=== PATIENT | female | born 1965 | race Two or more races ===

== ENCOUNTER 2020-08-06 10:07 | Emergency (ER) | payer SELFPAY ==
[~2020-08-06] VITALS: Ht 162.6 cm; Wt 89.5 kg
--- NOTE | 2020-08-06 10:37 | ED.ADGEN ---
Past Medical History Past Medical History: High Cholesterol Additional Past Medical Histor: frequent kidney infections Past Surgical History: , Tonsillectomy Smoking Status: Never Smoker Alcohol Use: None Drug Use: None General Adult EDM: Chief Complaint: FLANK PAIN HPI: HPI: Patient is a 54 year old female who presents emergency department with complaints of right upper quadrant and right flank pain since yesterday. She reports nausea, vomiting, dysuria, increased urinary frequency, and foul- smelling urine with her symptoms. She states that 10:00 this morning the pain increased so that is why she came to the ER. Patient denies any chest pain, fever, cough, shortness of breath, diarrhea, constipation, hematuria, body aches, fatigue, or headache. Patient reports history of frequent kidney infections. She denies any history of kidney failure. Patient denies any known exposure to COVID-19, she states she has received both doses of the [employer] Covid vaccine. She currently rates her pain a 10 out of 10 on the pain scale, she states that the pain radiates between her shoulders and also to her low back. She denies any alleviating factors or exacerbating factors. Review of Systems: Review of Systems: Complete ROS is negative unless otherwise noted in HPI. Current Medications: Current Medications Medications (Trade) Dose Ordered Sig/Coby Start Time Stop Time Status Last Admin Dose Admin Ceftriaxone Sodium (Rocephin) 1 gm 1X ONCE 08/06/20 16:15 08/06/20 16:16 Cancel Fentanyl Citrate (Fentanyl 2ml Vial) 50 mcg 1X ONCE 08/06/20 10:45 08/06/20 10:46 DC 08/06/20 10:54 50 MCG Hydromorphone HCl (Dilaudid) 1 mg 1X ONCE 08/06/20 12:45 08/06/20 12:46 DC 08/06/20 13:34 1 MG Ketorolac Tromethamine (Toradol 15mg Vial) 15 mg 1X ONCE 08/06/20 12:45 08/06/20 12:46 DC 08/06/20 13:29 15 MG Ondansetron HCl (Zofran Odt) 4 mg 1X ONCE 08/06/20 10:45 08/06/20 10:46 DC 08/06/20 10:50 4 MG Sodium Chloride 1,000 ml @ 1,000 mls/hr 1X ONCE 08/06/20 10:45 08/06/20 11:44 DC 08/06/20 10:53 1,000 MLS/HR Allergies: Allergies: Allergies Coded Allergies Type Severity Reaction Last Updated Verified No Known Drug Allergies 08/06/20 No Physical Exam: PE: See Above Constitutional: Well developed, well nourished, mild distress, non-toxic appearance, obese, appears uncomfortable. [] HENT: Normocephalic, atraumatic, bilateral external ears normal, nose normal. [] Eyes: PERRLA, EOMI, conjunctiva normal, no discharge. [] Neck: Normal range of motion, no stridor. [] Cardiovascular:Heart rate regular rhythm Lungs & Thorax: Respirations even and unlabored, no retractions, no respiratory distress Abdomen: soft, RUQ and epigastric TTP, no rebound tenderness, no guarding, no palpable mass, no pulsatile mass Back: Right CVA tenderness, no bony tenderness Skin: Warm, dry, no erythema, no rash. [] Extremities: No cyanosis, ROM intact, no edema. [] Neurologic: Alert and oriented X 3, normal sensory, normal motor, no focal deficits noted. [] Psychologic: Affect normal, judgement normal, mood normal. [] Current Patient Data: Labs: Laboratory Tests Test 08/06/20 10:15 08/06/20 10:20 Urine Collection Type Unknown Urine Color Yellow Urine Clarity Hazy Urine pH 6.5 (<5.0-8.0) Urine Specific [place] 1.020 (1.000-1.030) Urine Protein 100 mg/dL (NEG-TRACE) Urine Glucose (UA) Negative mg/dL (NEG) Urine Ketones (Stick) Trace mg/dL (NEG) Urine Blood Large (NEG) Urine Nitrite Negative (NEG) Urine Bilirubin Negative (NEG) Urine Urobilinogen Dipstick 0.2 mg/dL (0.2 mg/dL) Urine Leukocyte Esterase Moderate (NEG) Urine RBC 20-40 /HPF (0-2) Urine WBC 11-20 /HPF (0-4) Urine Squamous Epithelial Cells Few /LPF Urine Bacteria Moderate /HPF (0-FEW) White Blood Count 13.0 x10^3/uL (4.0-11.0) H Red Blood Count 5.22 x10^6/uL (3.50-5.40) Hemoglobin 15.5 g/dL (12.0-15.5) Hematocrit 45.0 % (36.0-47.0) Mean Corpuscular Volume 86 fL (79-100) Mean Corpuscular Hemoglobin 30 pg (25-35) Mean Corpuscular Hemoglobin Concent 34 g/dL (31-37) Red Cell Distribution Width 14.9 % (11.5-14.5) H Platelet Count 202 x10^3/uL (140-400) Neutrophils (%) (Auto) 78 % (31-73) H Lymphocytes (%) (Auto) 15 % (24-48) L Monocytes (%) (Auto) 6 % (0-9) Eosinophils (%) (Auto) 1 % (0-3) Basophils (%) (Auto) 1 % (0-3) Neutrophils # (Auto) 10.2 x10^3/uL (1.8-7.7) H Lymphocytes # (Auto) 1.9 x10^3/uL (1.0-4.8) Monocytes # (Auto) 0.8 x10^3/uL (0.0-1.1) Eosinophils # (Auto) 0.1 x10^3/uL (0.0-0.7) Basophils # (Auto) 0.1 x10^3/uL (0.0-0.2) Sodium Level 142 mmol/L (136-145) Potassium Level 3.8 mmol/L (3.5-5.1) Chloride Level 107 mmol/L (98-107) Carbon Dioxide Level 24 mmol/L (21-32) Anion Gap 11 (6-14) Blood Urea Nitrogen 20 mg/dL (7-20) Creatinine 0.7 mg/dL (0.6-1.0) Estimated GFR (Cockcroft-Gault) 87.9 BUN/Creatinine Ratio 29 (6-20) H Glucose Level 135 mg/dL (70-99) H Calcium Level 9.2 mg/dL (8.5-10.1) Magnesium Level 2.0 mg/dL (1.8-2.4) Total Bilirubin 0.5 mg/dL (0.2-1.0) Aspartate Amino Transferase (AST) 32 U/L (15-37) Alanine Aminotransferase (ALT) 52 U/L (14-59) Alkaline Phosphatase 122 U/L (46-116) H Total Protein 7.8 g/dL (6.4-8.2) Albumin 4.0 g/dL (3.4-5.0) Albumin/Globulin Ratio 1.1 (1.0-1.7) Lipase 117 U/L (73-393) Laboratory Tests 08/06/20 10:20 Laboratory Tests 08/06/20 10:20 Vital Signs: Vital Signs Date Time Temp Pulse Resp B/P (MAP) Pulse Ox O2 Delivery O2 Flow Rate FiO2 08/06/20 16:31 67 18 133/73 (93) 97 Room Air 08/06/20 10:18 98.7 98.7 EKG: EKG: [] Heart Score: C/O Chest Pain: No Risk Scores: Score 0 - 3: 2.5% MACE over next 6 weeks - Discharge Home Score 4 - 6: 20.3% MACE over next 6 weeks - Admit for Clinical Observation Score 7 - 10: 72.7% MACE over next 6 weeks - Early Invasive Strategies Radiology/Procedures: Radiology/Procedures: PROCEDURE: CT ABDOMEN PELVIS WO CONTRAST EXAM: Abdomen and pelvis CT without intravenous contrast. HISTORY: Right flank pain. TECHNIQUE: Computed tomographic images of the abdomen and pelvis were obtained without contrast. Multiplanar reformatting was performed. *One or more of the following individualized dose reduction techniques were ut ilized for this examination: 1. Automated exposure control. 2. Adjustment of the mA and/or kV according to patient size. 3. Use of iterative reconstruction technique. COMPARISON: None. FINDINGS: Evaluation of the lower thorax demonstrates patchy groundglass opacities within both lower lobes superimposed on posterior dependent and basilar atelectasis. There is no consolidation. There is no pleural effusion. The heart is normal in size. There is hepatomegaly and hepatic steatosis. The gallbladder, pancreas, spleen and adrenal glands are unremarkable. There is moderate right hydronephrosis secondary to an obstructing 2.0 cm stone within the proximal right ureter. There are additional nonobstructing bilateral renal stones measuring approximately 1 mm. There is a 3.1 cm simple cyst within the upper pole of the left kidney. The bladder is unremarkable. There is no appendicitis. There is no bowel obstruction. The aorta is normal in caliber. There is no lymphadenopathy. No adnexal lesion is seen. There is no suspicious osseous lesion. There is an incidental transitional lumbosacral segment. IMPRESSION: 1. Moderate right hydronephrosis secondary to an obstructing 2.0 cm stone within the proximal right ureter. There are tiny nonobstructing bilateral renal stones. 2. 3.1 cm simple cyst within the left kidney. Follow-up is not routinely performed for simple cysts. 3. Hepatomegaly and hepatic steatosis. 4. Nonspecific groundglass opacity within the bilateral lower lobe superimposed on atelectasis. The possibility of atypical interstitial infiltrate is not excluded. Correlate with symptomatology. Electronically signed by: Amy Lainez MD (08/06/2020 11:40 AM) [id number] [] Course & Med Decision Making: Course & Med Decision Making Pertinent Labs and Imaging studies reviewed. (See chart for details) 1214-I advised the patient of her CT result. I informed her that she needs to go to the hospital with urology services. The patient requested to be transferred to [facility]. We will contact treatment to try to arrange transfer for this patient. 1602- Per the transfer team at [facility] the patient is out of their cachment and they cannot accept the patient transfer. Will contact . 1640-Per Becki with a transfer center, Dr. Jose Khan is accepting physician at with urology services. Patient needs to be transferred directly to the surgical pre and post unit for stent placement and then will most likely be discharged home. We will arrange ambulance transfer for the patient and nurse will call report to the unit as requested. [] Aixa Disclaimer: Dragon Disclaimer: This electronic medical record was generated, in whole or in part, using a voice recognition dictation system. Departure Departure Impression: Primary Impression: Hydronephrosis with renal and ureteral calculus obstruction Disposition: 02 SHORT TERM HOSPITAL Condition: STABLE LEWIS [employer] August 06, 2020 10:37
[2020-08-06 10:44] LABS: BASO # 0.1 x10^3/uL (0.0-0.2); BASO % 1 % (0-3); EOS # 0.1 x10^3/uL (0.0-0.7); EOS % 1 % (0-3); HEMOGLOBIN 15.5 g/dL (12.0-15.5); LYMPH # 1.9 x10^3/uL (1.0-4.8); LYMPH % 15 % (24-48); MEAN CORPUSCULAR HEMOGLOBIN 30 pg (25-35); MEAN CORPUSCULAR HGB CONC 34 g/dL (31-37); MEAN CORPUSCULAR VOLUME 86 fL (79-100); MONO # 0.8 x10^3/uL (0.0-1.1); MONO % 6 % (0-9); NEUT # 10.2 x10^3/uL (1.8-7.7); NEUT % 78 % (31-73); PLATELET COUNT 202 x10^3/uL (140-400); RED BLOOD COUNT 5.22 x10^6/uL (3.50-5.40); RED CELL DISTRIBUTION WIDTH 14.9 % (11.5-14.5)
[2020-08-06] MEDS ORDERED: ONDANSETRON ODT 4 MG TAB.RAPDIS. PO ONE (10:45)
[2020-08-06] MEDS ORDERED: fentaNYL PF VIAL 100 MCG/2 ML VIAL IV ONE (10:45)
[2020-08-06] MEDS ORDERED: IV NORMAL SALINE 1000ML BAG 1,000 ML IV ONE (10:45)
[2020-08-06 10:59] LABS: BILIRUBIN,URINE NEGATIVE (NEG); COLOR,URINE YELLOW; NITRITE,URINE NEGATIVE (NEG); PH,URINE 6.5 (<5.0-8.0); PROTEIN,URINE 100 mg/dL (NEG-TRACE); UROBILINOGEN,URINE 0.2 mg/dL (0.2 mg/dL)
[2020-08-06 11:01] LABS: CALCIUM 9.2 mg/dL (8.5-10.1); CREATININE 0.7 mg/dL (0.6-1.0); GFR 87.9; POTASSIUM 3.8 mmol/L (3.5-5.1)
[2020-08-06 11:07] LABS: ALBUMIN/GLOBULIN RATIO 1.1 (1.0-1.7); TOTAL BILIRUBIN 0.5 mg/dL (0.2-1.0); TOTAL PROTEIN 7.8 g/dL (6.4-8.2)
[2020-08-06 11:09] LABS: CLARITY,URINE HAZY
[2020-08-06 11:10] LABS: BACTERIA,URINE MODERATE /HPF (0-FEW); RBC,URINE 20-40 /HPF (0-2)
[2020-08-06] MEDS ORDERED: cefTRIAXone IV Push 1 GM VIAL. IVP ONE ×2 (11:15→16:15)
--- NOTE | 2020-08-06 11:42 | RAD ---
EXAM: Abdomen and pelvis CT without intravenous contrast. HISTORY: Right flank pain. TECHNIQUE: Computed tomographic images of the abdomen and pelvis were obtained without contrast. Mult iplanar reformatting was performed. *One or more of the following individualized dose reduction techniques were utilized for this examina tion: 1. Automated exposure control. 2. Adjustment of the mA and/or kV according to patient size. 3. Use of iterative reconstruction technique. COMPARISON: None. FINDINGS: Evaluation of the lower thorax demonstrates patchy groundglass opacities within both lower lobes superimposed on posterior dependent and basilar atelectasis. There is no consolidation. There i s no pleural effusion. The heart is normal in size. There is hepatomegaly and hepatic steatosis. The gallbladder, pancreas, spleen and adrenal glands are unremarkable. There is moderate right hydronephrosis secondary to an obstructing 2.0 cm stone within the proximal r ight ureter. There are additional nonobstructing bilateral renal stones measuring approximately 1 mm. There is a 3.1 cm simple cyst within the upper pole of the left kidney. The bladder is unremarkable. There is no appendicitis. There is no bowel obstruction. The aorta is normal in caliber. There is no lymphadenopathy. No adnexal lesion is seen. There is no s uspicious osseous lesion. There is an incidental transitional lumbosacral segment. IMPRESSION: 1. Moderate right hydronephrosis secondary to an obstructing 2.0 cm stone within the proximal right u reter. There are tiny nonobstructing bilateral renal stones. 2. 3.1 cm simple cyst within the left kidney. Follow-up is not routinely performed for simple cysts. 3. Hepatomegaly and hepatic steatosis. 4. Nonspecific groundglass opacity within the bilateral lower lobe superimposed on atelectasis. The p ossibility of atypical interstitial infiltrate is not excluded. Correlate with symptomatology. Electronically signed by: Amy Lainez MD (08/06/2020 11:40 AM) [id number]
[2020-08-06] MEDS ORDERED: KETOROLAC 15 MG/ML VIAL. IVP ONE (12:45)
[2020-08-06] MEDS ORDERED: HYDROmorphone 2 MG/ML VIAL IVP ONE ×2 (12:45→18:00)
[2020-08-06 16:31] VITALS: BP 133/73
== END 2020-08-06 18:02 | disposition short-term general hospital (02) ==
LOC: ER 10:07
DX: N13.2 Hydronephrosis with renal and ureteral calculous obstruction (principal); E78.00 Pure hypercholesterolemia, unspecified; Z98.890 Other specified postprocedural states
CPT/HCPCS: 36415; 74176; 80053; 81001; 83690; 83735; 85025; 87077; 87086; 87186; 96361; 96374; 96375; 96376; 99285; J0696; J1170; J1885; J3010; J7030